=== PATIENT | male | born 1970 | race Caucasian/White ===

== ENCOUNTER 2017-03-25 12:29 | Day surgery (SDC) | payer BC ==
[2017-03-25 09:15] VITALS: BMI 24.0
[2017-03-25 12:59] LABS: BASO # 0.01 K/mm3 (0.0-2.0); BASO % 0.2 % (0.0-3.0); EOS # 0.1 (0.0-0.7); EOS % 1.4 % (1.5-5.0); GRAN # 2.46 (1.4-6.5); GRAN % 57.9 % (50.0-68.0); HEMOGLOBIN 14.8 g/dL (14.0-18.0); LYMPH # 1.3 (1.2-3.4); LYMPH % 31.3 % (22.0-35.0); MEAN CELL VOLUME 92.4 fl (80.0-105.0); MEAN CORPUSCULAR HEMOGLOBIN 31.3 pg (25.0-35.0); MEAN CORPUSCULAR HGB CONC 33.9 g/dl (31.0-37.0); MEAN PLATELET VOLUME 10.9 fl (7.0-11.0); MONO # 0.4 (0.1-0.6); MONO % 9.2 % (1.0-6.0); RBC 4.73 10^6/uL (3.5-6.1); RED CELL DISTRIBUTION WIDTH 12.2 % (11.5-14.5); WHITE BLOOD COUNT 4.3 10^3/ul (4.5-11.0)
[2017-03-25 13:11] LABS: INR 1.05 (0.93-1.08); PARTIAL THROMBOPLASTIN TIME 36.9 Seconds (25.1-36.5); PROTHROMBIN TIME 12.1 SECONDS (9.4-12.5)
[2017-03-25 13:12] LABS: BLOOD UREA NITROGEN 14 mg/dL (7-21); CALCIUM 9.5 mg/dL (8.4-10.5); GFR AFRICAN-AMERICAN > 60; GFR NON-AFRICAN AMERICAN > 60
[2017-03-25] MEDS ORDERED: Lidocaine 2% Inj (20ml) ONE (14:49)
[2017-03-25] MEDS ORDERED: Iodixanol 320 MG/ML 200 ML BOTTLE IV ONE (14:49)
[2017-03-25] MEDS ORDERED: HEPARIN SODIUM/NS 1,000 ML IV ONE (14:50)
[2017-03-25] MEDS ORDERED: Midazolam 2 MG/2 ML VIAL ONE (15:25)
[2017-03-25] MEDS ORDERED: Sodium Chloride 0.45% 1,000 ML IV SCH (16:00)
--- NOTE | 2017-03-25 16:13 | VASCULAR ---
PROCEDURE: Left upper extremity venogram HISTORY: Evaluate for left thoracic outlet obstruction PHYSICIAN(S): Bishnu Bullock MD. TECHNIQUE: The relative risks and indications of the procedure were explained to the patient and consent obtained. The patient was hydrated prior to the procedure and the appropriate labs drawn. The patient was placed supine on the arteriogram table and the left axilla prepped and draped usual sterile fashion. Conscious sedation monitoring were provided throughout the procedure by a nurse. A large left brachial vein was punctured near the axilla under ultrasound guidance with a micropuncture set. A 5 M[place]ese catheter was placed. A left upper extremity venogram with emphasis on the thoracic outlet was performed with the arm adducted and abducted. The patient tolerated the procedure well FINDINGS: No bony abnormalities are appreciated on preliminary fluoroscopy. The left subclavian vein is patent without evidence of significant narrowing or thrombus. With abduction, the left subclavian vein narrow slightly but does not completely obstruct. No collaterals are appreciated. The left innominate vein and SVC are normal. IMPRESSION: 1. Normal left upper extremity venogram in neutral and abducted positions. 2. No evidence of venous thoracic outlet obstruction or thrombus
[2017-03-25 16:49] VITALS: TEMP 98; O2SAT 97
[2017-03-25 17:28] VITALS: BP 106/60; PULSE 69; RESP 18
== END 2017-03-25 17:30 | disposition home or self-care (01) ==
LOC: SDSVAS 12:29
PROVIDERS: ATTEND Radiology Vascular & Interventional Radiology
DX: G54.0 Brachial plexus disorders (principal); E78.5 Hyperlipidemia, unspecified
CPT/HCPCS: 36005; 36415; 75820; 80048; 85025; 85610; 85730; 99152; J1644; J2405; J3010; J7030